=== PATIENT | female | born 1970 | race Caucasian/White ===

== ENCOUNTER → 2017-03-09 | Day surgery (SDC) | payer OTHER ==
[~2017-03-09] VITALS: Ht 157.5 cm; Wt 56.3 kg
[~2017-03-09] MED LIST: ACETAMINOPHEN 1000 MG/100 ML 100 ML IV ONE; ACETAMINOPHEN/HYDROcodone 325 MG/5 MG TAB PO PRN; ALPR0.5T3 PO; BELLADONNA ALKALOIDS/OPIUM 60 MG SUPP RECTAL ONE; BUPIVACAINE 0.5% OTHER ONE; DEXAMETHASONE SOD PHOS 4 MG/ML VIAL IV ONE; DO NOT ADM ANY ANTICOAGULANT DRUGS PRN; FAMOTIDINE 20 MG/2 ML VIAL ONE; FENT50DI T-DERMAL; GLYCOPYRROLATE 1 MG/5 ML SYRINGE IV PUSH ONE; HYDR-3366 PO; HYDROmorphone HCL PF 2 MG/ML VIAL IV PRN; HYDROmorphone HCL PF 2 MG/ML VIAL ONE; KETAMINE HCL 500 MG/5 ML VIAL ONE; LACTATED RINGER'S 1000 ML INJ 1,000 ML IV ONE; LACTATED RINGER'S 1000 ML IV PRN; LEVO1CAP4 PO; LEVS0.124 SL; LIDOCAINE 0.5%/EPINEPHrine 1:200,000 SOLN 50 ML VIAL ONE; LIDOCAINE HCL 1% PF 5 ML SYRINGE OTHER ONE; MEPERIDINE HCL 25 MG/ML VIAL ONE; METOPROLOL TARTRATE 25 MG TAB PO PRN; MIDAZOLAM HCL 2 MG/2 ML VIAL ONE; OMEP40CA2 PO; ONABOTULINUMTOXINA INJ 100 UNITS/VIAL ONE; ONDANSETRON HCL 4 MG/2 ML VIAL IV ONE; ONDANSETRON HCL 4 MG/2 ML VIAL IV PUSH PRN; OXYB10TA PO; PROPOFOL 200 MG/20 ML AMP IV ONE; SODIUM CHLORID 0.9% 500 ML IV PRN; SODIUM CHLORIDE 0.9% 20 ML VIAL IV ONE; TRIAMCINOLONE OTHER ONE; VANCOMYCIN 1000 MG/NS 250 ML ON-CALL IV SCH; VECURONIUM BROMIDE 20 MG VIAL IV ONE; [UNRECOGNIZED DRUG - OTHER] IRRIGATION ONE; ePHEDrine/NS 25 MG/5 ML SYRINGE IV ONE
[2017-03-09 14:25] LABS: AUTOMATED NEUTROPHIL # 2.9 TH/MM3 (1.8-7.7); BASOPHIL % 0.4 % (0.0-2.0); EOSINOPHIL % 0.6 % (0.0-4.0); HEMATOCRIT 37.5 % (35.0-46.0); HEMOGLOBIN 12.9 GM/DL (11.6-15.3); LYMPH % 32.9 % (9.0-44.0); LYMPHOCYTE # 1.6 TH/MM3 (1.0-4.8); MEAN CELL VOLUME 95.6 FL (80.0-100.0); MEAN CORPUSCULAR HEMOGLOBIN 32.8 PG (27.0-34.0); MEAN CORPUSCULAR HGB CONC 34.3 % (32.0-36.0); MEAN PLATELET VOLUME 7.7 FL (7.0-11.0); MONO % 7.1 % (0.0-8.0); MONOCYTE # 0.3 TH/MM3 (0-0.9); PLATELET COUNT 288 TH/MM3 (150-450); RED BLOOD COUNT 3.92 MIL/MM3 (4.00-5.30); RED CELL DISTRIBUTION WIDTH 13.4 % (11.6-17.2); WHITE BLOOD COUNT 4.9 TH/MM3 (4.0-11.0)
--- NOTE | 2017-03-09 17:19 | PD.OP ---
Operative Report Date of Surgery: Mar 09, 2017 Preoperative Diagnosis: Interstitial cystitis with nonfunctioning InterStim with lead Postoperative Diagnosis: Same Procedure: Removal of InterStim implant with lead with cystoscopy with hydrodistention with injection of Kenalog/Marcaine/Botox with Shazia Massage Anesthesia: HOLLIS Surgeon: Byron Novak [employer] Cutter Hand(s): None Resident Surgeon: None Operation and Findings: 47 year female with history of a nonfunctioning InterStim device history of interstitial cystitis. Patient elected to undergo removal of InterStim device with lead with cystoscopy and hydrodistention with injection of Kenalog with Marcaine and Botox with Shazia Massage. Risk and benefits were discussed preoperative she is willing to proceed. The patient was brought to [facility] identified by myself as Donna Soliman. She she was intubated with general endotracheal tube anesthesia well on the stretcher. She was then placed in the prone position on the operating table and all areas were appropriately padded. She was prepped and draped in usual sterile fashion and received preprocedure antibiotics. The InterStim lead and generator were palpated along the left buttock. 15 blade was used to make the opening incision after 1% Marcaine was injected at the site of the InterStim device. The device was palpated and then using my index finger was elevated and removed from the wound site. Hemostasis was obtained with the Bovie. The lead was then cut from its distal and and then a small incision was made over where the lead was placed in the sacral foramina. The lead was extracted from the sacral foramina and the lead was removed in entirety. Hemostasis was obtained again with the Bovie and then this was closed with a 4-0 Vicryl suture. The pocket was then closed with a 3- 0 Vicryl suture and then a 4-0 Monocryl was used to close the skin. Dressings were applied and the patient was then placed back on the stretcher in the supine position and and placed back onto the operating table in the dorsal lithotomy position. Cystoscopy was then performed and the bladder appeared to be injected with erythema. No bladder tumors were identified. Hydrodistention was then performed and 1200 cc of saline were used to hydrate stent in the bladder. A red hue was noted to be present within the drained fluid from the bladder. A 14 [place] catheter was inserted into the bladder and then the Mackenzie cocktail was inserted into the bladder. A 10 cc injection of Marcaine/Kenalog was then placed along the vaginal side wall on each side 100 units of Botox was injected on each side of the vaginal wall near the base of the bladder. A Shazia massage was then performed on each side. She is awoken and extubated transrectal stable condition. She will follow-up in the office in 1 month. Byron Novak DO Mar 09, 2017 17:19
[2017-03-09 18:25] VITALS: BP 118/70; PULSE 66; RESP 20; TEMP 98; O2SAT 96
== END | disposition home or self-care (01) ==
LOC: HSDC 12:17
PROVIDERS: ATTEND Urology
DX: T85.191A Other mechanical complication of implanted electronic neurostimulator of peripheral nerve electrode (lead), initial encounter (principal); N30.10 Interstitial cystitis (chronic) without hematuria
CPT/HCPCS: 00300; 00910; 52260; 52287; 64585; 64595; 85025; J0131; J0585; J1100; J1170; J1644; J1720; J2175; J2250; J2405; J3010; J7120